=== PATIENT | male | born 1975 | race Two or more races ===

== ENCOUNTER 2021-01-27 09:04 | Emergency (ER) | payer OTHER ==
[2021-01-27 09:30] LABS: BASOPHIL 0.6 % (0-2); EOSINOPHIL 1.1 % (0-5); HCT 44.3 % (42.0-52.0); HGB 14.7 g/dl (13.2-18.0); LYMPHOCYTE 15.1 % (15-48); MCH 27.8 pg (25.0-31.0); MCHC 33.2 g/dL (32.0-36.0); MCV 83.9 fL (78.0-100.0); MONOCYTE 8.5 % (0-12); MPV 9.9 fL (6.0-9.5); NEUTROPHIL 74.3 % (41-80); NRBC 0; PLT 241 K/uL (150-400); RBC 5.28 M/uL (4.70-6.00); RDW 13.7 % (11.5-14.0); WBC 8.2 K/uL (4.0-10.5)
[2021-01-27 09:42] LABS: INR 1.05 (0.9-1.2); PROTHROMBIN TIME 13.1 SECONDS (11.8-13.4); PTT 26.5 SECONDS (24.4-34.7)
[2021-01-27 09:43] LABS: D-DIMER 0.79 ug/mLFEU (0.00-0.41)
[2021-01-27 09:48] LABS: ALBUMIN 3.9 g/dL (3.4-5.0); BILIRUBIN - TOTAL 0.9 mg/dL (0.2-1.0); BUN/CREAT RATIO (CALC) 14.4 RATIO; CREATININE 0.9 mg/dL (0.67-1.17); GLOBULIN (CALCULATION) 3.9 g/dL; POTASSIUM 3.7 mmol/L (3.5-5.1); TOTAL PROTEIN 7.8 g/dL (6.4-8.2)
== END 2021-01-27 15:05 | disposition other institution (70) ==
LOC: FER 09:04
PROVIDERS: Emergency Medicine
DX: I21.4 Non-ST elevation (NSTEMI) myocardial infarction (principal)
CPT/HCPCS: 36415; 71046; 80053; 82553; 84484; 85025; 85379; 85610; 85730; 93005; J1644

== ENCOUNTER 2021-07-20 13:44 | Inpatient (IN) | payer OTHER ==
[~2021-07-20] VITALS: Ht 173 cm; Wt 82.4 kg
[2021-07-20 15:08] LABS: BASOPHIL 0.1 % (0-2); EOSINOPHIL 0 % (0-5); HCT 48.3 % (42.0-52.0); LYMPHOCYTE 5.9 % (15-48); MCHC 33.1 g/dL (32.0-36.0); MCV 81.6 fL (78.0-100.0); MONOCYTE 4.7 % (0-12); MPV 10.2 fL (6.0-9.5); NEUTROPHIL 88.7 % (41-80); NRBC 0.1; PLT 333 K/uL (150-400); RBC 5.92 M/uL (4.70-6.00); RDW 17.5 % (11.5-14.0); WBC 16.3 K/uL (4.0-10.5)
[2021-07-20 15:25] LABS: INR 2.28 (0.9-1.2); PROTHROMBIN TIME 24.2 SECONDS (11.8-13.4); PTT 32.5 SECONDS (24.4-34.7)
[2021-07-20 15:35] LABS: BUN/CREAT RATIO (CALC) 20.5 RATIO; CREATININE 1.27 mg/dL (0.67-1.17); POTASSIUM 4.5 mmol/L (3.5-5.1)
[2021-07-20 15:44] LABS: D-DIMER 17.4 ug/mLFEU (0.00-0.41)
[2021-07-20 22:20] LABS: BILIRUBIN 2+ mg/dL (NEGATIVE); BLOOD TRACE-INTACT Ery/uL (NEGATIVE); CLARITY CLEAR (CLEAR); COLOR YELLOW (YELLOW); GLUCOSE (U) NORMAL (NORMAL); LEUKOCYTES NEGATIVE Leu/uL (NEGATIVE); NITRITE NEGATIVE (NEGATIVE); PROTEIN TRACE (LOW) mg/dL (NEGATIVE); pH 5.5 (5.0-9.0)
[2021-07-20 22:24] LABS: ECSTASY (MDMA) NEGATIVE (NEGATIVE); MARIJUANA (THC) NEGATIVE (NEGATIVE)
[2021-07-20 22:25] LABS: AMPHETAMINES NEGATIVE (NEGATIVE); BARBITURATES NEGATIVE (NEGATIVE); METHADONE POSITIVE (NEGATIVE); OPIATES NEGATIVE (NEGATIVE); OXYCODONE NEGATIVE (NEGATIVE)
[2021-07-20 22:27] LABS: URINARY WBC RARE
[2021-07-20 22:28] LABS: AMORPHOUS URATES CRYSTALS MODERATE
[2021-07-22 05:58] LABS: BASOPHIL 0.1 % (0-2); EOSINOPHIL 0 % (0-5); HCT 42.4 % (42.0-52.0); HGB 14.2 g/dl (13.2-18.0); LYMPHOCYTE 4.8 % (15-48); MCH 26.7 pg (25.0-31.0); MCHC 33.5 g/dL (32.0-36.0); MCV 79.7 fL (78.0-100.0); MONOCYTE 5.3 % (0-12); NEUTROPHIL 89.3 % (41-80); NRBC 0.2; PLT 256 K/uL (150-400); RBC 5.32 M/uL (4.70-6.00); RDW 16.3 % (11.5-14.0); WBC 17.6 K/uL (4.0-10.5)
[2021-07-22 06:32] LABS: BUN/CREAT RATIO (CALC) 28.9 RATIO; CREATININE 1.28 mg/dL (0.67-1.17); POTASSIUM 4.1 mmol/L (3.5-5.1)
[2021-07-23 06:25] LABS: BASOPHIL 0.1 % (0-2); EOSINOPHIL 0.1 % (0-5); HCT 42.1 % (42.0-52.0); HGB 14.3 g/dl (13.2-18.0); LYMPHOCYTE 5.5 % (15-48); MCH 26.7 pg (25.0-31.0); MCV 78.5 fL (78.0-100.0); MONOCYTE 6.1 % (0-12); MPV 10.5 fL (6.0-9.5); NEUTROPHIL 87.6 % (41-80); NRBC 0.3; PLT 265 K/uL (150-400); RBC 5.36 M/uL (4.70-6.00); RDW 16.2 % (11.5-14.0); WBC 13.6 K/uL (4.0-10.5)
[2021-07-23 06:40] LABS: BUN/CREAT RATIO (CALC) 30.6 RATIO; CREATININE 1.34 mg/dL (0.67-1.17); POTASSIUM 3.9 mmol/L (3.5-5.1)
--- NOTE | 2021-07-24 14:48 | NUR ---
07/24/21 Mower [place], [place] [id number]. Mr. Cabrera came from [place] where he was working and staying with his brother. His brother transported him to another brother's home in [place] when he became ill. He did not have a PCP. The Resource Plate Corrector, Reva, scheduled an appointment with Heather De Leon. Mr. Cabrera was provided with his [facility] policy # and advised to present the # to the Pharmacy. He was instructed to call Medicaid in attmpts to continue the presumptive Medicaid. He was also educated to the [facility] in the event that Medicaid is not extended. Furthermore, he was educated to [employer] [facility].
[2021-07-24] MEDS ORDERED: COREG 6.25MG6.25 MG PO (18:25)
[2021-07-24] MEDS ORDERED: ALDACTONE25 MG PO (18:25)
[2021-07-24] MEDS ORDERED: BUMETANIDE1 MG PO (18:25)
[2021-07-24] MEDS ORDERED: LOSARTAN POTASS25 MG PO (18:25)
== END 2021-07-24 19:00 | disposition home or self-care (01) | DRG 280 ==
LOC: FER 13:44 → FMS 21:29 → FTCU 21:29 → FMS 07-22 07:56
PROVIDERS: Hospitalist; Internal Medicine; Nurse Practitioner Family; ADMIT Internal Medicine
DX: I13.0 Hypertensive heart and chronic kidney disease with heart failure and stage 1 through stage 4 chronic kidney disease, or unspecified chronic kidney disease (principal); I50.23 Acute on chronic systolic (congestive) heart failure; I21.A1 Myocardial infarction type 2; N18.2 Chronic kidney disease, stage 2 (mild); Z20.822 Contact with and (suspected) exposure to COVID-19; I42.8 Other cardiomyopathies; I25.10 Atherosclerotic heart disease of native coronary artery without angina pectoris; F15.10 Other stimulant abuse, uncomplicated; U09.9 Post COVID-19 condition, unspecified; R53.83 Other fatigue; R06.02 Shortness of breath; R05.9 Cough, unspecified; R73.9 Hyperglycemia, unspecified; I08.1 Rheumatic disorders of both mitral and tricuspid valves; I95.9 Hypotension, unspecified; I27.20 Pulmonary hypertension, unspecified; I25.2 Old myocardial infarction; Z98.890 Other specified postprocedural states; Z79.899 Other long term (current) drug therapy
CPT/HCPCS: 36415; 71045; 71275; 80048; 80061; 80305; 81001; 83735; 83880; 84443; 84484; 85025; 85379; 85610; 85730; 93005; 93970; 94010; J1644; J1650; J1940; J7060; U0002

== ENCOUNTER 2021-10-02 10:01 | Day surgery (SDCO) | payer OTHER ==
[~2021-10-02] VITALS: Ht 167.6 cm; Wt 83.2 kg
[~2021-10-02 10:01] MED LIST: ALDACTONE25 MG PO; BUMETANIDE1 MG PO; COREG 6.25MG6.25 MG PO; LOSARTAN POTASS25 MG PO
[2021-10-02 12:48] LABS: BASOPHIL 0.4 % (0-2); EOSINOPHIL 0.1 % (0-5); HCT 40.5 % (42.0-52.0); LYMPHOCYTE 20.9 % (15-48); MCH 25.5 pg (25.0-31.0); MCHC 32.1 g/dL (32.0-36.0); MCV 79.4 fL (78.0-100.0); MONOCYTE 8.4 % (0-12); MPV 10.5 fL (6.0-9.5); NEUTROPHIL 69.6 % (41-80); PLT 241 K/uL (150-400); RDW 19.3 % (11.5-14.0); WBC 12.5 K/uL (4.0-10.5)
[2021-10-02 12:54] LABS: BILIRUBIN NEGATIVE (NEGATIVE); BLOOD NEGATIVE Ery/uL (NEGATIVE); CLARITY CLEAR (CLEAR); COLOR YELLOW (YELLOW); GLUCOSE (U) NORMAL (NORMAL); LEUKOCYTES NEGATIVE Leu/uL (NEGATIVE); NITRITE NEGATIVE (NEGATIVE); PROTEIN TRACE (LOW) mg/dL (NEGATIVE); SPECIFIC GRAVITY 1.025 (1.001-1.030); UROBILINOGEN 0.2 mg/dL (0.2-1.0); pH 5.5 (5.0-9.0)
[2021-10-02 12:59] LABS: ALBUMIN 4.1 g/dL (3.4-5.0); BILIRUBIN - TOTAL 3.8 mg/dL (0.2-1.0); BUN/CREAT RATIO (CALC) 19.3 RATIO; CREATININE 1.19 mg/dL (0.67-1.17); GLOBULIN (CALCULATION) 3.7 g/dL; POTASSIUM 4.7 mmol/L (3.5-5.1); TOTAL PROTEIN 7.8 g/dL (6.4-8.2)
[2021-10-02 13:02] LABS: URINARY RBC RARE
[2021-10-02 13:03] LABS: BACTERIA TRACE
[2021-10-02 13:33] LABS: CORONAVIRUS 2019 SARS-COV-2 NEGATIVE (NEGATIVE); INFLUENZA A NAA NEGATIVE (NEGATIVE)
[2021-10-03 06:26] LABS: BASOPHIL 0.6 % (0-2); EOSINOPHIL 0.1 % (0-5); HCT 33.9 % (42.0-52.0); HGB 11.1 g/dl (13.2-18.0); MCH 25.8 pg (25.0-31.0); MCHC 32.7 g/dL (32.0-36.0); MCV 78.8 fL (78.0-100.0); MONOCYTE 10.5 % (0-12); MPV 10.2 fL (6.0-9.5); NEUTROPHIL 69.1 % (41-80); PLT 175 K/uL (150-400); RDW 19.1 % (11.5-14.0)
[2021-10-03 06:38] LABS: BUN/CREAT RATIO (CALC) 18.2 RATIO; CREATININE 1.37 mg/dL (0.67-1.17); POTASSIUM 4.4 mmol/L (3.5-5.1)
--- NOTE | 2021-10-03 11:40 | NUR ---
IN ROOM WITH ANESTHESIA WITH TREE FARMER JAYLENE ID#[id number] DISCUSSED IN DEPTH THE PROCEDURE WITH BENEFITS AND RISKS, SIGNED CONSENTS AND GIVEN COREG SHORTLY AFTER THIS ANESTHESIA CALLED CASE OFF AT THIS TIME
[2021-10-03] MEDS ORDERED: CARAFATE1 GM PO (11:50)
[2021-10-03] MEDS ORDERED: BUMEX1 MG PO (11:50)
[2021-10-03] MEDS ORDERED: PROTONIX 40MG T40 MG PO (11:50)
[2021-10-03] MEDS ORDERED: COREG 6.25MG6.25 MG PO (11:50)
--- NOTE | 2021-10-03 14:51 | NUR ---
PATIENT DISCHARGE DONE WITH COBLESKILL ID#[id number]
--- NOTE | 2021-10-04 09:02 | NUR ---
10/04/21 This manager social services met with Mr. Cabrera on 10/03/21 using [place] interpretor Jerrica [id number]. His [id number] was present. - A voucher was provided for medications. The Financial [employer] has made application for Medicaid. The Medicaid will in 2 months. Mr. Cabrera was again educated to the [facility] and provided with the days of operation which he can walk into the CLinic to start the application paperwork. Is was emphased that the clinic can assist him in getting medications when the Medicaid expires and he is hospitalized when he doesn't take his medications.
== END 2021-10-03 14:45 | disposition home or self-care (01) ==
LOC: FER 10:01 → FMS 17:02
PROVIDERS: Nurse Practitioner Family; ADMIT Allergy & Immunology Allergy
DX: K21.9 Gastro-esophageal reflux disease without esophagitis (principal); Z53.8 Procedure and treatment not carried out for other reasons; I13.0 Hypertensive heart and chronic kidney disease with heart failure and stage 1 through stage 4 chronic kidney disease, or unspecified chronic kidney disease; I50.9 Heart failure, unspecified; N18.9 Chronic kidney disease, unspecified; I42.8 Other cardiomyopathies; Z20.822 Contact with and (suspected) exposure to COVID-19; Z79.899 Other long term (current) drug therapy; Z86.16 Personal history of COVID-19; Z82.49 Family history of ischemic heart disease and other diseases of the circulatory system
CPT/HCPCS: 36415; 71045; 76705; 80048; 80053; 81001; 83690; 83880; 84484; 85025; 93005; C9113; G0378; J2405; J7030; Q9967; U0002